=== PATIENT | female | born 1995 | race Caucasian/White ===

== ENCOUNTER 2018-02-17 13:20 | Emergency (ER) | payer BC ==
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
[2018-02-17 15:04] VITALS: BP 112/88
== END 2018-02-17 15:02 | disposition home or self-care (01) ==
DX: S00.211A Abrasion of right eyelid and periocular area, initial encounter (principal); S06.0X0A Concussion without loss of consciousness, initial encounter; W01.190A Fall on same level from slipping, tripping and stumbling with subsequent striking against furniture, initial encounter

== ENCOUNTER 2018-04-11 09:02 | Emergency (ER) | payer BC ==
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
[2018-04-11 13:25] VITALS: BP 110/85
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
== END 2018-04-11 13:36 | disposition home or self-care (01) ==
LOC: EDUNIT#
DX: R45.851 Suicidal ideations (principal); F19.10 Other psychoactive substance abuse, uncomplicated; F98.8 Other specified behavioral and emotional disorders with onset usually occurring in childhood and adolescence; Z79.899 Other long term (current) drug therapy; F17.200 Nicotine dependence, unspecified, uncomplicated
CPT/HCPCS: 80305